=== PATIENT | female | born 1985 | race Caucasian/White ===

== ENCOUNTER 2016-10-19 23:43 | Emergency (ER) | payer BC ==
[2016-10-20] VITALS: BP 124/80
[2016-10-20] MEDS ORDERED: Sodium Chloride 0.9% 10 ML Syringe FLUSH PRN (00:08)
[2016-10-20] MEDS ORDERED: Ondansetron 4 MG/2 ML SDV IVPUSH ONE (00:08)
[2016-10-20] MEDS ORDERED: Morphine 2 MG/ML Syringe IVPUSH ONE (00:08)
[2016-10-20] MEDS ORDERED: Sodium Chloride 0.9% 1,000 ML IV SCH (00:15)
[2016-10-20] MEDS ORDERED: HYDROmorphone 2 MG/ML SDV IVPUSH ONE (01:05)
[2016-10-20] MEDS ORDERED: Iopamidol 755 Mg/ML 75 ML Bottle IV ONE (01:20)
[2016-10-20] MEDS ORDERED: Tamsulosin 0.4 MG Cap.ER PO ONE (02:00)
[2016-10-20] MEDS ORDERED: Acetaminophen/HYDROcodone 325-5 MG Tab PO ONE (02:04)
--- NOTE | 2016-10-20 05:23 | ER ---
DATE SEEN: 10/19/2016 CHIEF COMPLAINT: Abdominal pain. HISTORY OF PRESENT ILLNESS: A 30-year-old female with pain in the abdomen since this evening on the right side. No radiation, severe, she had some vomiting x2. REVIEW OF SYSTEMS: Mild constipation. No hematuria or urinary symptoms. Has a Guera in place and denies . ALLERGIES: Sulfa and latex. PHYSICAL EXAMINATION: VITAL SIGNS: Blood pressure is normal. Temperature is 97.4. GENERAL: She appears pale and sick. ABDOMEN: Soft, scaphoid. There is tenderness in the right lower quadrant and also in the lumbar spine. Bowel sounds are present. CHEST/HEART: Normal to auscultation. LABORATORY DATA: White cell count 15.9. Sodium 135, potassium is 3.3. CT showed obstructive uropathy on the right with a 3-4 mm sized stone, was not able to visualize the appendix. IMPRESSION: 1. Ureteric calculi with obstructive uropathy. 2. Abdominal pain. PLAN: I gave her morphine and then Dilaudid, symptoms improved, I will send her home. I also gave one 1 L of normal saline. Send her home on Flomax and hydrocodone with instructions to follow up tomorrow with PCP. Return to the ED with any worsening symptoms. Time seen was 0202 hours. /[id number] 020 [id number] KOMAL/CARLOS
== END 2016-10-20 02:25 | disposition home or self-care (01) ==
LOC: FB.ED 23:43
DX: N20.1 Calculus of ureter (principal); Z88.2 Allergy status to sulfonamides; Z91.040 Latex allergy status
CPT/HCPCS: 36415; 74177; 80053; 81001; 81025; 85025; 96361; 96374; 96375; 99284; A9270; J1170; J2270; J2405; J7040; J7050; Q9967